=== PATIENT | female | born 1940 | race Caucasian/White ===

== ENCOUNTER → 2017-04-07 | Outpatient (CLI) | payer BC ==
--- NOTE | 2017-04-07 10:57 | KCIC ---
Examination: CT chest without contrast HISTORY: History of lung nodule follow-up COMPARISON: 04/01/2016 TECHNIQUE: Axial CT images of the chest were performed without contrast. Coronal and sagittal reformats are performed Exposure: One or more of the following individualized dose reduction techniques were utilized for this examination: 1. Automated exposure control 2. Adjustment of the mA and/or kV according to patient size 3. Use of iterative reconstruction technique FINDINGS: The central airways are patent. The ascending aorta measures 3.5 cm in transverse dimension grossly similar to prior exam. Coronary artery calcifications. The heart size grossly appears unremarkable. Moderate aortic atherosclerosis. Examination limited due to lack of IV contrast. Diffuse emphysematous changes identified in the bilateral lungs. Bilateral apical scarring changes. 3 mm nodule identified in the right upper lobe of the lung grossly similar to prior exam. The visualized noncontrasted liver, spleen, adrenals grossly appears unremarkable. Partially visualized gallstones identified within the gallbladder. Mild degenerative changes thoracic spine. IMPRESSION: 1. Severe emphysematous changes. 2. 3 mm pulmonary nodule identified in the right upper lobe lung grossly similar to prior exam. 3. Mild ectasia ascending aorta unchanged. 4. Cholelithiasis. Electronically signed by: Humberto Obrien MD (04/07/2017 10:54 AM) [id number]
== END | disposition home or self-care (01) ==
LOC: KCIC CT 09:12
PROVIDERS: ATTEND Internal Medicine Pulmonary Disease
DX: J43.9 Emphysema, unspecified (principal); K80.20 Calculus of gallbladder without cholecystitis without obstruction; I77.819 Aortic ectasia, unspecified site; I70.0 Atherosclerosis of aorta; Z87.891 Personal history of nicotine dependence
CPT/HCPCS: 71250

== ENCOUNTER → 2019-04-05 | Outpatient (CLI) | payer BC, MEDICARE ==
--- NOTE | 2019-04-05 16:11 | RAD ---
EXAM: Chest CT without intravenous contrast. HISTORY: Pulmonary nodule follow-up. TECHNIQUE: Computed tomographic images of the chest were obtained without contrast. Multiplanar reformatting was performed. *One or more of the following individualized dose reduction techniques were utilized for this examination: 1. Automated exposure control. 2. Adjustment of the mA and/or kV according to patient size. 3. Use of iterative reconstruction technique. COMPARISON: 04/07/2017. FINDINGS: The heart is normal in size. There is stable mild dilatation of the ascending aorta to a caliber of 3.6 cm. There is calcified plaque within the aorta and coronary arteries. No pathologically enlarged mediastinal or hilar lymph node is seen. There is severe emphysema. There is right apical pleural parenchymal scarring. There are 304 mm right upper lobe nodular opacities, stable in appearance. There is also lingular and medial right middle lobe pleural parenchymal scarring or atelectasis. There is peripheral and pleural-based opacity within the medial left lower lobe, the appearance of which favors pneumonic infiltrate. There is a 1.5 cm nonspecific groundglass opacity within the periphery of the lateral left lower lobe. This may be due to atelectasis or scarring. There is no acute finding involving the upper abdomen. There are degenerative changes involving the spine. There are few thyroid calcifications. IMPRESSION: 1. Severe emphysema with suspected right apical, right middle lobe and lingular scarring. 2. Suspected partially consolidated medial left lower lobe infiltrate. This is new compared to the prior study. Follow-up to confirm resolution and exclude a persistent lesion in this location. 3. Stable tiny right upper lobe nodules, the largest of which measures 3 mm. The long-term stability favors benignity. Electronically signed by: Maylin Moss MD (04/05/2019 4:08 PM) [place] [id number]
== END | disposition home or self-care (01) ==
LOC: CT 14:08
PROVIDERS: ATTEND Internal Medicine Pulmonary Disease
DX: J92.9 Pleural plaque without asbestos (principal); J43.9 Emphysema, unspecified; I70.0 Atherosclerosis of aorta; I25.10 Atherosclerotic heart disease of native coronary artery without angina pectoris; R91.8 Other nonspecific abnormal finding of lung field
CPT/HCPCS: 71250

== ENCOUNTER → 2019-10-02 | Outpatient (CLI) | payer BC ==
--- NOTE | 2019-10-02 08:50 | RAD ---
PQRS Compliance Statement: One or more of the following individualized dose reduction techniques were utilized for this examination: 1. Automated exposure control 2. Adjustment of the mA and/or kV according to patient size 3. Use of iterative reconstruction technique CT CHEST WO CONTRAST 10/02/2019 9:00 AM Indication: Lung nodule COMPARISON: CT chest 04/05/2019, 04/07/2017 TECHNIQUE: Multiple axial CT images of the chest were obtained without intravenous contrast. Coronal and sagittal reformats are provided. FINDINGS: Previously seen subpleural nodular consolidative process is nearly completely resolved with the previous dominant nodular component measuring 1.7 x 1.3 cm. There is a residual solid noncalcified pulmonary nodule measuring 0.8 x 0.5 cm (series 3, image 134). These findings are new since 04/07/2017. Findings are noted on the background of moderate to severe centrilobular pulmonary emphysema. There is biapical pleural-parenchymal scarring, right greater than left. Subsegmental atelectasis is noted in the medial lingula and right middle lobe. No pleural effusions, pulmonary vascular congestion or pneumothorax. Coarse calcifications are identified within the thyroid gland. Nonenlarged mediastinal lymph nodes are present. Evaluation of hilar lymphadenopathy is limited by lack of intravenous contrast. No pathologically enlarged axillary, mediastinal or hilar lymph nodes are identified. Heart size is within normal limits. Three-vessel coronary artery vascular calcifications are present. No pericardial effusion. No significant osseous abnormality is identified. Evaluation of the upper abdomen is limited by lack of intravenous contrast. Cholelithiasis. IMPRESSION: 1. Moderate to advanced centrilobular pulmonary emphysema with improved airspace consolidation in the subpleural medial left lower lobe. There is a residual 0.8 x 0.5 cm noncalcified pulmonary nodule which remains indeterminate. A 6 month follow-up CT chest is recommended per Fleischner 2017 pulmonary nodule guidelines. 2. Cholelithiasis. Electronically signed by: Carmen Watson MD (10/02/2019 8:47 AM) [place] [id number]
== END | disposition home or self-care (01) ==
LOC: CT 08:17
PROVIDERS: ATTEND Internal Medicine Pulmonary Disease
DX: J43.2 Centrilobular emphysema (principal); E04.2 Nontoxic multinodular goiter; R91.1 Solitary pulmonary nodule; R59.0 Localized enlarged lymph nodes; I25.10 Atherosclerotic heart disease of native coronary artery without angina pectoris; K80.20 Calculus of gallbladder without cholecystitis without obstruction
CPT/HCPCS: 71250

== ENCOUNTER → 2021-05-07 | Outpatient (CLI) | payer BC ==
--- NOTE | 2021-05-07 16:11 | RAD ---
CT scan of the chest without contrast 05/07/2021 CLINICAL HISTORY: History of pulmonary nodule. TECHNIQUE: Unenhanced contiguous, 0.625 mm axial sections were obtained through the chest and upper a bdomen. 1 mm and 5 mm reconstructed axial and 3 mm sagittal and coronal reconstructed obtained. One or more of the following individualized dose reduction techniques were utilized for this study: 1. Automated exposure control. 2. Adjustment of the mA and/or kV according to patient size. 3. Use of iterative reconstruction technique. FINDINGS: Comparison study is dated 10/02/2019. Atherosclerotic calcification of the thoracic aorta and its branches is noted. The thoracic aorta is mildly tortuous but tapers normally. Extensive coronary artery calcifications are seen. The heart is normal in size. Small reactive mediastinal and axillary lymph nodes are again noted. A noncalcified oval-shaped slightly irregular nodule is seen involving the medial aspect of the left lower lobe (image 157 of series 3). This measures 0.9 x 0.6 x 0.6 cm in transverse, craniocaudal and AP dimensions. This has increased in size since the previous examination where it measured 0.7 x 0.5 x 0.5 cm in size. No additional pulmonary nodule is seen.Moderate to severe emphysematous changes are seen involving dudley th lungs. Areas of scarring are seen involving both upper lobes, right greater than left. No area of consolidation is seen. No pneumothorax or pleural effusion is noted. Images through the upper abdomen demonstrate atherosclerotic calcification of the abdominal aorta. De generative changes are seen involving the thoracic spine. IMPRESSION: 9 mm noncalcified nodule is seen involving left lower lobe which has increased in size si nce the examination. Further evaluation with PET CT scan is recommended. Electronically signed by: Jonathan Norton MD (05/07/2021 4:09 PM) [id number]
== END ==
LOC: CT 10:41
PROVIDERS: ATTEND Internal Medicine Pulmonary Disease
DX: R91.1 Solitary pulmonary nodule (principal); J43.9 Emphysema, unspecified; I70.0 Atherosclerosis of aorta
CPT/HCPCS: 71250